=== PATIENT | female | born 1995 | race American Indian/Alaskan Native ===

== ENCOUNTER 2018-01-12 10:39 | Inpatient (IN) | payer BC ==
[2018-01-12] MEDS ORDERED: MINERAL OIL PO PRN (10:50)
[2018-01-12] MEDS ORDERED: BRETHINE SUB-Q PRN (10:50)
[2018-01-12] MEDS ORDERED: SUBLIMAZE IV PRN (10:50)
[2018-01-12] MEDS ORDERED: ZOFRAN IV PRN (10:50)
[2018-01-12] MEDS ORDERED: XYLOCAINE 2% INFILTRATI ONE (10:50)
--- NOTE | 2018-01-12 10:56 | History and Physical Report ---
History of Present Illness Date of examination: 01/12/18 (pt presents for IOL @ 41w4d) Date of admission: 01/12/18 10:39 History of present illness: EDC Confirmation: 01/01/2018 Gestational Age: 8 3/7 weeks Past History : 1 Term Births: 0 Premature Births: 0 Living Children: 0 Para: 0 Mult. Births: 0 Prev : 0 Prev. attempt? 0 Aborta: 0 Elect. Ab: 0 Spont. 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 of genital herpes: no Partner hx. of genital herpes: no Rash, Viral, or Febrile illness since last LMP? no Varicella/Chicken Pox Status: Previous Disease Genetic History Congenital Heart Defect: Mom: no Dad: no Roberth Disease: Mom: no Dad: no Thalassemia Mom: no Dad: no Neural Tube Defect Mom: no Dad: no Down's Syndrome Mom: no Dad: yes Comments: second cousin Hardik-Sachs Mom: no Dad: no Sickle Cell Disease/Trait Mom: no Dad: no Hemophilia Mom: no Dad: no Muscular Dystrophy Mom: no Dad: no Cystic Fibrosis Mom: no Dad: no Lucrecia Chorea Mom: no Dad: no Mental Retardation Mom: no Dad: no Fragile X Mom: no Dad: no Other Genetic/Chromosomal Disorder Mom: no Dad: no Child w/other defect Mom: no Dad: no Enviromental Exposures Xray Exposure: no Medication, drug, or alcohol use since LMP: no Chemical/Other Exposure: no Exposure to Cat Liter: no Hx of Parvovirus (Fifth Disease): no Occupational Exposure to Children: none Active Medications (reviewed today): None Current Allergies (reviewed today): No known allergies Past History - Obstetrical History Expected Date of Delivery: 01/01/18 Actual Gestation: 41 Week(s) 4 Day(s) : 1 Para: 0 Hx # Term Pregnancies: 0 Number of Pregnancies: 0 Spontaneous Abortions: 0 Induced : 0 Number of Living Children: 0 Medications and Allergies Allergies Allergy/AdvReac Type Severity Reaction Status Date / Time No Known Allergies Allergy Unverified 01/12/18 11:22 - Physical Exam Breasts: Positive: deferred Cardiovascular: Regular rate, Normal S1, Normal S2 Lungs: Positive: Clear to auscultation Abdomen: Positive: normal appearance, soft, normal bowel sounds. Negative: distention, tenderness Genitourinary (Female): Positive: normal external genitalia Vulva: both: normal Vagina: Positive: normal moisture. Negative: discharge Cervix: Negative: lesion, discharge Uterus: Positive: normal size, normal contour Adnexa: both: normal Anus/Rectum: Positive: normal perianal skin, heme negative. Negative: rectal mass, hemorrhoids Extremities: Positive: normal Deep Tendon Reflex Grade: Normal +2 - Obstetrical FHR: category 1 Uterine Contraction Monitor Mode: External Cervical Dilatation: 0.5 Cervical Effacement Percentage: 40 station: -3 Uterine Contraction Pattern: Irregular Uterine Tone Measurement Phase: Resting Uterine Contraction Intensity: Mild Results Result Diagrams: 01/12/18 11:16 01/12/18 11:15 All other labs normal. Strep Gp B JOSE DAVID [A] Positive HBsAg Screen Negative Negative *1 RPR Non Reactive Non Reactive *2 Rubella Antibodies, IgG [L] <0.90 index Immune >0.99 *3 Non-immune <0.90 Equivocal 0.90 - 0.99 Immune >0.99 ABO Grouping O *4 Rh Factor Positive *5 Please note: Prior records for this patient's ABO / Rh type are not available for additional verification. Antibody Screen Negative Negative *6 WBC 10.7 x10E3/uL 3.4-10.8 *7 RBC 4.81 x10E6/uL 3.77-5.28 *8 Hemoglobin 13.8 g/dL 11.1-15.9 *9 Hematocrit 41.1 % 34.0-46.6 *10 MCV 85 fL 79-97 *11 MCH 28.7 pg 26.6-33.0 *12 MCHC 33.6 g/dL 31.5-35.7 *13 RDW 14.3 % 12.3-15.4 *14 Platelets 186 x10E3/uL 150-379 *15 Neutrophils 74 % Not Estab. *16 Lymphs 19 % Not Estab. *17 Monocytes 5 % Not Estab. *18 Eos 2 % Not Estab. *19 Basos 0 % Not Estab. *20 ! Immature Cells <No Reported Value> *21 Neutrophils (Absolute) [H] 8.0 x10E3/uL 1.4-7.0 *22 Lymphs (Absolute) 2.0 x10E3/uL 0.7-3.1 *23 Monocytes(Absolute) 0.5 x10E3/uL 0.1-0.9 *24 Eos (Absolute) 0.2 x10E3/uL 0.0-0.4 *25 Baso (Absolute) 0.0 x10E3/uL 0.0-0.2 *26 ! Immature Granulocytes 0 % Not Estab. *27 ! Immature Grans (Abs) 0.0 x10E3/uL 0.0-0.1 *28 ! NRBC <No Reported Value> *29 Hematology Comments: <No Reported Value> *30 Tests: (2) Panel 549215 ([id number]) HIV Screen 4th Generation wRfx Non Reactive Non Reactive *31 Tests: (3) HCV Ab w/Rflx to Verification (107413) ! HCV Ab <0.1 s/co ratio 0.0-0.9 *32 Tests: (4) Comment: (964608) ! Comment: [facility] *33 Non reactive HCV antibody screen is consistent with no HCV infection, unless recent infection is suspected or other evidence exists to indicate HCV infection. Tests: (5) Urine Culture, Routine (346135) Urine Culture, Routine Final report *34 Tests: (6) Result (705606) ! Result 1 No growth Assessment and Plan 22yo @ 41 weeks for IOL GBS+ Orders in EMR
[2018-01-12] MEDS ORDERED: PITOCin/NS 20 UNIT/1000ML DRIP 20 UNITS/1,000 ML BAG IV SCH (11:00)
[2018-01-12] MEDS ORDERED: LACTATED RINGERS 1,000 ML IV SCH (11:00)
[2018-01-12 11:54] LABS: Hematocrit 38.2 % (30.3-42.9); Hemoglobin 13.3 gm/dl (10.1-14.3); Mean Corpuscular HGB Conc 35 % (30-34); Mean Corpuscular Hemoglobin 30 pg (28-32); Mean Corpuscular Volume 85 fl (79-97); Platelet Count 113 K/mm3 (140-440); Red Blood Count 4.48 M/mm3 (3.65-5.03); Red Cell Distribution Width 15.4 % (13.2-15.2)
[2018-01-12] MEDS ORDERED: CERVIDIL VG ONE (12:00)
[2018-01-12] MEDS ORDERED: POLYCILLIN/NS 2 GM/100 ML 2 GM/100 ML BAG IV ONE (12:00)
[2018-01-12 13:23] LABS: Alanine Aminotransferase 7 units/L (7-56); Uric Acid 4.3 mg/dL (3.5-7.6)
[2018-01-12] MEDS ORDERED: AMBIEN PO PRN (20:58)
--- NOTE | 2018-01-12 21:51 | Event Note ---
Date: 01/12/18 (POC reviewed; All questions addressed) Pt very anxious about ABX, about what comes next after Cervidil, and the length of time the IOL may take. The 2Gm dose of Ampicillin has been given when she starts active labor will give 1GM dose Q 4hrs. Cervidil will be removed @ 0400 She will be OOB for AM care and diet Then pitocin will be started per protocol. How long will IOL take exp it could be 12-24 hours or it maybe 2-3 days. All questions were addressed and answered. Pt given Ambien for sleep.
[2018-01-12] MEDS ORDERED: PITOCin/NS 30 UNIT/500ML 30 UNITS/500 ML BAG IV SCH (23:00)
[2018-01-13] MEDS: AMPICILLIN/NS 1 GM/50 ML 1 GM/50 ML BAG IV SCH ×2 (05:59→14:10)
--- NOTE | 2018-01-13 07:46 | Progress Note ---
Assessment and Plan SROM @ 0633 with light mec, SVE 3-4/95/-1 to 0. After discussing plan of care, IUPC and ISE placed without difficulty. IVF open for bolus for epidural, will start pitocin after epidural placement. GBS +, ampicillin q4h until delivery. Pelvis appears adequate for efw 8#8 at this late stage of , anticipate . Dr. Wick aware of patient's status. - Patient Problems (1) SROM (spontaneous rupture of membranes) Current Visit: Yes Status: Acute (2) 41 weeks gestation of Current Visit: Yes Status: Acute (3) Group B Streptococcus carrier state affecting Current Visit: Yes Status: Acute Subjective - Subjective Date of service: 01/13/18 Principal diagnosis: IUP @ 41+5 weeks, AROM Patient reports: loss of fluid, movement normal, contractions Objective - Vital Signs Vital Signs: Vital Signs - 12hr 01/12/18 01/12/18 01/12/18 19:46 19:51 19:56 Temperature Pulse Rate 103 H 102 H 103 H Respiratory Rate Blood Pressure O2 Sat by Pulse 96 96 94 Oximetry 01/12/18 01/12/18 01/12/18 19:57 20:01 20:06 Temperature 98.3 F Pulse Rate 97 H 102 H 98 H Respiratory 20 Rate Blood Pressure 124/83 O2 Sat by Pulse 96 96 Oximetry 01/12/18 01/12/18 01/12/18 20:11 20:16 20:21 Temperature Pulse Rate 101 H 101 H 96 H Respiratory Rate Blood Pressure O2 Sat by Pulse 97 96 96 Oximetry 01/12/18 01/12/18 01/12/18 20:23 20:51 20:56 Temperature Pulse Rate 99 H 98 H 99 H Respiratory Rate Blood Pressure O2 Sat by Pulse 94 94 95 Oximetry 01/12/18 01/12/18 01/12/18 21:01 21:05 21:06 Temperature Pulse Rate 105 H 97 H 100 H Respiratory Rate Blood Pressure O2 Sat by Pulse 95 94 95 Oximetry 01/12/18 01/12/18 01/12/18 21:10 21:11 21:15 Temperature Pulse Rate 103 H 96 H 103 H Respiratory Rate Blood Pressure O2 Sat by Pulse 94 95 94 Oximetry 01/12/18 01/13/18 01/13/18 22:01 04:04 04:57 Temperature 98.5 F Pulse Rate 102 H 100 H 115 H Respiratory 20 Rate Blood Pressure 122/72 117/78 O2 Sat by Pulse 94 Oximetry 01/13/18 01/13/18 01/13/18 05:02 05:07 05:12 Temperature Pulse Rate 118 H 110 H 110 H Respiratory Rate Blood Pressure O2 Sat by Pulse 95 95 97 Oximetry 01/13/18 01/13/18 01/13/18 05:17 05:19 05:22 Temperature Pulse Rate 105 H 98 H 103 H Respiratory Rate Blood Pressure O2 Sat by Pulse 96 94 95 Oximetry 01/13/18 01/13/18 01/13/18 05:27 05:31 05:32 Temperature Pulse Rate 103 H 103 H 105 H Respiratory Rate Blood Pressure O2 Sat by Pulse 96 94 94 Oximetry 01/13/18 01/13/18 01/13/18 05:37 05:42 05:47 Temperature Pulse Rate 107 H 101 H 108 H Respiratory Rate Blood Pressure O2 Sat by Pulse 95 96 95 Oximetry 01/13/18 01/13/18 01/13/18 05:52 05:57 06:02 Temperature Pulse Rate 106 H 100 H 101 H Respiratory Rate Blood Pressure O2 Sat by Pulse 96 96 95 Oximetry 01/13/18 01/13/18 01/13/18 06:07 06:12 06:17 Temperature 98 F Pulse Rate 125 H 119 H 115 H Respiratory 20 Rate Blood Pressure 121/75 O2 Sat by Pulse 96 95 95 Oximetry 01/13/18 01/13/18 01/13/18 06:18 06:22 06:26 Temperature Pulse Rate 109 H 115 H 111 H Respiratory Rate Blood Pressure O2 Sat by Pulse 94 95 94 Oximetry 01/13/18 01/13/18 01/13/18 06:27 06:32 06:33 Temperature 97.6 F Pulse Rate 104 H 113 H Respiratory 20 Rate Blood Pressure O2 Sat by Pulse 95 97 Oximetry 01/13/18 01/13/18 01/13/18 06:37 06:42 06:47 Temperature Pulse Rate 103 H 102 H 93 H Respiratory Rate Blood Pressure O2 Sat by Pulse 97 97 96 Oximetry 01/13/18 01/13/18 01/13/18 06:52 06:57 07:02 Temperature Pulse Rate 95 H 98 H 109 H Respiratory Rate Blood Pressure O2 Sat by Pulse 96 96 99 Oximetry 01/13/18 01/13/18 01/13/18 07:05 07:07 07:12 Temperature Pulse Rate 95 H 92 H 104 H Respiratory Rate Blood Pressure O2 Sat by Pulse 94 97 97 Oximetry 01/13/18 01/13/18 01/13/18 07:17 07:28 07:33 Temperature Pulse Rate 104 H 110 H 102 H Respiratory Rate Blood Pressure O2 Sat by Pulse 98 96 97 Oximetry 01/13/18 07:38 Temperature Pulse Rate 101 H Respiratory Rate Blood Pressure O2 Sat by Pulse 95 Oximetry - Exam Breasts: normal Cardiovascular: Regular rate Lungs: Clear to auscultation, Normal air movement Abdomen: Present: normal appearance, soft Vulva: both: normal Uterus: Present: normal FHR: auscultation normal, category 1 Uterine Contraction Monitor Mode: Internal Cervical Dilatation: 3.5 (SROM - light mec) Cervical Effacement Percentage: 95 station: -1 Uterine Contraction Frequency (min): 2-3 Uterine Contraction Duration: 60 Uterine Contraction Pattern: Regular Uterine Tone Measurement Phase: Contraction Uterine Contraction Intensity: Moderate Extremities: normal Deep Tendon Reflex Grade: Normal +2 - Labs Labs: Abnormal Labs 01/12/18 01/12/18 11:15 11:16 WBC 13.0 H MCHC 35 H RDW 15.4 H Plt Count 113 L Creatinine 0.4 L Lactate Dehydrogenase 201 H Laboratory Results - last 24 hr 01/12/18 01/12/18 01/12/18 11:15 11:16 11:19 WBC 13.0 H RBC 4.48 Hgb 13.3 Hct 38.2 MCV 85 MCH 30 MCHC 35 H RDW 15.4 H Plt Count 113 L Creatinine 0.4 L Estimated GFR > 60 Uric Acid 4.3 AST 15 ALT 7 Lactate Dehydrogenase 201 H Blood Type O POSITIVE Antibody Screen Negative
[2018-01-13] MEDS ORDERED: NARCAN 2 MG/2 ML IV PRN (09:19)
--- NOTE | 2018-01-13 09:19 | Anesthesia Consultation ---
Anesthesia Consult and Med Hx Date of service: 01/13/18 - Airway Anesthetic Teeth Evaluation: Good ROM Head & Neck: Adequate Mental/Hyoid Distance: Adequate Mallampati Class: Class II Intubation Access Assessment: Probably Good - Pre-Operative Health Status ASA Pre-Surgery Classification: ASA2 Proposed Anesthetic Plan: Epidural, Spinal - Pulmonary Hx Asthma: No COPD: No Hx Pneumonia: No - Cardiovascular System Hx Hypertension: No - Central Nervous System Hx Seizures: No Hx Psychiatric Problems: No - Endocrine Hx Renal Disease: No Hx End Stage Renal Disease: No Hx Hypothyroidism: No Hx Hyperthyroidism: No - Hematic Hx Anemia: No Hx Sickle Cell Disease: No - Other Systems Hx Alcohol Use: No (social)
[2018-01-13] MEDS ORDERED: fentaNYL-BUPIV 2 MCG/ML-0.125% 200 MCG/100 ML BAG EPIDURAL SCH (11:00)
[2018-01-13] MEDS ORDERED: AFLURIA QUAD 2018-2019 SYRINGE IM ONE (12:00)
--- NOTE | 2018-01-13 12:15 | Progress Note ---
Assessment and Plan patient comfortable with epidural, sve with good change, no 8/100/0. FHT CAT 2 (isolated variable noted @ 1130, otherwise +accels, ave variability.) Patient turned to left side with right leg in stirrup. RN to continue to titrate pitocin as needed. - Patient Problems (1) SROM (spontaneous rupture of membranes) Current Visit: Yes Status: Acute (2) 41 weeks gestation of Current Visit: Yes Status: Acute (3) Group B Streptococcus carrier state affecting Current Visit: Yes Status: Acute Subjective - Subjective Date of service: 01/13/18 Principal diagnosis: IUP @ 41+5 weeks, AROM Patient reports: no new complaints (comfortable with epidural) Objective - Vital Signs Vital Signs: Vital Signs - 12hr 01/13/18 01/13/18 01/13/18 04:04 04:57 05:02 Temperature Pulse Rate 100 H 115 H 118 H Respiratory Rate Blood Pressure 117/78 O2 Sat by Pulse 94 95 Oximetry 01/13/18 01/13/18 01/13/18 05:07 05:12 05:17 Temperature Pulse Rate 110 H 110 H 105 H Respiratory Rate Blood Pressure O2 Sat by Pulse 95 97 96 Oximetry 01/13/18 01/13/18 01/13/18 05:19 05:22 05:27 Temperature Pulse Rate 98 H 103 H 103 H Respiratory Rate Blood Pressure O2 Sat by Pulse 94 95 96 Oximetry 01/13/18 01/13/18 01/13/18 05:31 05:32 05:37 Temperature Pulse Rate 103 H 105 H 107 H Respiratory Rate Blood Pressure O2 Sat by Pulse 94 94 95 Oximetry 01/13/18 01/13/18 01/13/18 05:42 05:47 05:52 Temperature Pulse Rate 101 H 108 H 106 H Respiratory Rate Blood Pressure O2 Sat by Pulse 96 95 96 Oximetry 01/13/18 01/13/18 01/13/18 05:57 06:02 06:07 Temperature Pulse Rate 100 H 101 H 125 H Respiratory Rate Blood Pressure O2 Sat by Pulse 96 95 96 Oximetry 01/13/18 01/13/18 01/13/18 06:12 06:17 06:18 Temperature 98 F Pulse Rate 119 H 115 H 109 H Respiratory 20 Rate Blood Pressure 121/75 O2 Sat by Pulse 95 95 94 Oximetry 01/13/18 01/13/1801/13/18 06:22 06:26 06:27 Temperature Pulse Rate 115 H 111 H 104 H Respiratory Rate Blood Pressure O2 Sat by Pulse 95 94 95 Oximetry 01/13/18 01/13/18 01/13/18 06:32 06:33 06:37 Temperature 97.6 F Pulse Rate 113 H 103 H Respiratory 20 Rate Blood Pressure O2 Sat by Pulse 97 97 Oximetry 01/13/18 01/13/18 01/13/18 06:42 06:47 06:52 Temperature Pulse Rate 102 H 93 H 95 H Respiratory Rate Blood Pressure O2 Sat by Pulse 97 96 96 Oximetry 01/13/18 01/13/18 01/13/18 06:57 07:02 07:05 Temperature Pulse Rate 98 H 109 H 95 H Respiratory Rate Blood Pressure O2 Sat by Pulse 96 99 94 Oximetry 01/13/18 01/13/18 01/13/18 07:07 07:12 07:17 Temperature Pulse Rate 92 H 104 H 104 H Respiratory Rate Blood Pressure O2 Sat by Pulse 97 97 98 Oximetry 01/13/18 01/13/18 01/13/18 07:28 07:33 07:38 Temperature Pulse Rate 110 H 102 H 101 H Respiratory Rate Blood Pressure O2 Sat by Pulse 96 97 95 Oximetry 01/13/18 01/13/18 01/13/18 07:43 07:48 07:53 Temperature Pulse Rate 102 H 107 H 101 H Respiratory Rate Blood Pressure O2 Sat by Pulse 95 96 96 Oximetry 01/13/18 01/13/18 01/13/18 07:56 07:58 08:03 Temperature Pulse Rate 98 H 97 H 97 H Respiratory Rate Blood Pressure 143/93 O2 Sat by Pulse 95 96 Oximetry 01/13/18 01/13/18 01/13/18 08:08 08:11 08:13 Temperature Pulse Rate 99 H 104 H 107 H Respiratory Rate Blood Pressure 127/71 O2 Sat by Pulse 98 96 Oximetry 01/13/18 01/13/18 01/13/18 08:18 08:23 08:26 Temperature Pulse Rate 102 H 103 H 106 H Respiratory Rate Blood Pressure 144/105 O2 Sat by Pulse 98 96 Oximetry 01/13/18 01/13/18 01/13/18 08:28 08:33 08:38 Temperature Pulse Rate 103 H 101 H 103 H Respiratory Rate Blood Pressure O2 Sat by Pulse 96 95 97 Oximetry 01/13/18 01/13/18 01/13/18 08:40 08:41 08:43 Temperature Pulse Rate 104 H 104 H 98 H Respiratory Rate Blood Pressure 149/104 O2 Sat by Pulse 94 97 Oximetry 01/13/18 01/13/18 01/13/18 08:48 08:53 08:56 Temperature Pulse Rate 105 H 104 H 107 H Respiratory Rate Blood Pressure 136/82 O2 Sat by Pulse 97 97 Oximetry 01/13/18 01/13/18 01/13/18 08:58 09:03 09:08 Temperature Pulse Rate 109 H 105 H 106 H Respiratory Rate Blood Pressure O2 Sat by Pulse 95 97 98 Oximetry 01/13/18 01/13/18 01/13/18 09:13 09:18 09:23 Temperature Pulse Rate 106 H 103 H Respiratory Rate Blood Pressure 135/84 O2 Sat by Pulse 97 97 87 Oximetry 01/13/18 01/13/18 01/13/18 09:24 09:26 09:28 Temperature Pulse Rate 110 H 104 H 109 H Respiratory Rate Blood Pressure 129/78 O2 Sat by Pulse 86 99 Oximetry 01/13/18 01/13/18 01/13/18 09:33 09:38 09:43 Temperature Pulse Rate 99 H 104 H 104 H Respiratory Rate Blood Pressure 140/90 O2 Sat by Pulse 98 96 98 Oximetry 01/13/18 01/13/18 01/13/18 09:44 09:45 09:49 Temperature Pulse Rate 105 H 104 H 99 H Respiratory Rate Blood Pressure 131/77 129/76 O2 Sat by Pulse 87 99 Oximetry 01/13/18 01/13/18 01/13/18 09:54 09:58 09:59 Temperature Pulse Rate 106 H 100 H 99 H Respiratory Rate Blood Pressure 124/69 137/75 O2 Sat by Pulse 99 99 Oximetry 01/13/18 01/13/18 01/13/18 10:04 10:08 10:09 Temperature Pulse Rate 93 H 88 93 H Respiratory Rate Blood Pressure 128/80 129/79 O2 Sat by Pulse 98 99 Oximetry 01/13/18 01/13/18 01/13/18 10:13 10:14 10:18 Temperature Pulse Rate 91 H 100 H 89 Respiratory Rate Blood Pressure 133/73 131/74 O2 Sat by Pulse 100 Oximetry 09/01/13/18 01/13/18 10:19 10:23 10:24 Temperature Pulse Rate 91 H 92 H 95 H Respiratory Rate Blood Pressure 138/87 O2 Sat by Pulse 99 99 Oximetry 01/13/18 01/13/18 01/13/18 10:28 10:29 10:33 Temperature Pulse Rate 98 H 90 93 H Respiratory Rate Blood Pressure 137/84 132/81 O2 Sat by Pulse 99 Oximetry 01/13/18 01/13/18 01/13/18 10:34 10:38 10:39 Temperature Pulse Rate 91 H 93 H 89 Respiratory Rate Blood Pressure 131/73 O2 Sat by Pulse 100 100 Oximetry 01/13/18 01/13/18 01/13/18 10:43 10:44 10:48 Temperature Pulse Rate 92 H 103 H 97 H Respiratory Rate Blood Pressure 129/75 128/76 O2 Sat by Pulse 99 Oximetry 01/13/18 01/13/18 01/13/18 10:49 10:53 10:54 Temperature Pulse Rate 94 H 94 H 99 H Respiratory Rate Blood Pressure 124/73 O2 Sat by Pulse 100 99 Oximetry 01/13/18 01/13/18 01/13/18 10:58 10:59 11:03 Temperature Pulse Rate 93 H 92 H 103 H Respiratory Rate Blood Pressure 124/71 127/80 O2 Sat by Pulse 99 Oximetry 01/13/18 01/13/18 01/13/18 11:04 11:09 11:14 Temperature Pulse Rate 105 H 104 H 100 H Respiratory Rate Blood Pressure 135/82 O2 Sat by Pulse 98 98 98 Oximetry 01/13/18 01/13/18 01/13/18 11:19 11:24 11:27 Temperature Pulse Rate 97 H 101 H 106 H Respiratory Rate Blood Pressure 128/80 O2 Sat by Pulse 98 98 Oximetry 01/13/18 01/13/18 01/13/18 11:29 11:34 11:42 Temperature Pulse Rate 100 H 125 H 120 H Respiratory Rate Blood Pressure 132/80 O2 Sat by Pulse 98 99 Oximetry 01/13/18 11:57 Temperature Pulse Rate 116 H Respiratory Rate Blood Pressure 136/81 O2 Sat by Pulse Oximetry - Exam Breasts: normal Cardiovascular: Regular rate Lungs: Clear to auscultation, Normal air movement Abdomen: Present: normal appearance, soft Vulva: both: normal Uterus: Present: normal FHR: auscultation normal, category 1 Uterine Contraction Monitor Mode: Internal Cervical Dilatation: 8 Cervical Effacement Percentage: 100 station: 0 Uterine Contraction Frequency (min): 2-3 Uterine Contraction Duration: 60 Uterine Contraction Pattern: Regular Uterine Tone Measurement Phase: Contraction Uterine Contraction Intensity: Moderate Extremities: normal Deep Tendon Reflex Grade: Normal +2 - Labs Labs: Abnormal Labs 01/12/18 01/12/18 11:15 11:16 WBC 13.0 H MCHC 35 H RDW 15.4 H Plt Count 113 L Creatinine 0.4 L Lactate Dehydrogenase 201 H Laboratory Results - last 24 hr 01/12/18 01/12/18 01/12/18 11:15 11:16 11:19 Creatinine 0.4 L Estimated GFR > 60 Uric Acid 4.3 AST 15 ALT 7 Lactate Dehydrogenase 201 H RPR Nonreactive Blood Type O POSITIVE Antibody Screen Negative
--- NOTE | 2018-01-13 17:15 | Procedure Note ---
OB Delivery Note - Delivery Date of Delivery: 01/13/18 ( male) [employer]: DAMARIS TYLER Estimated blood loss: other (350) - Vaginal Delivery presentation: vertex Delivery position: OA (restitued to SUSAN) Intrapartum events: PROM->1hr before delivery, meconium, mult.variable deceleratio (head compression during later part of pushing), other(please specify) ( tachycardia- no maternal temp) Delivery induction: cervidil Delivery augmentation: pitocin Delivery monitor: internal FHT, internal uterine Route of delivery: Delivery placenta: spontaneous Delivery cord: 3 umbilical vessels Episiotomy: none Delivery laceration: 2nd degree, other (bilateral labial) Delivery repair: vicryl Anesthesia: epidural Delivery comments: Male del OA and rotated SUSAN, no shoulder dystocia. Cord clamped and cut - infant taken to warmer to awaiting NICU CLERICAL ADJUSTER and RN d/t meconium fluid. Cord blood collected. Placenta del intact and complete. 2nd degree vag/jose angel laceration and bilateral labial lacerations repaired in the usual fashion. EBL 350, apgars 4/7/8 - taken to NICU to transition. baby's weight 7#14. pt remains LDR stable. - Infant A at 1 minute: 4 at 5 minutes: 7 Gender: Male (7#14, 10 minutes 8)
[2018-01-13] MEDS ORDERED: DERMOPLAST TP PRN (20:01)
[2018-01-13] MEDS ORDERED: TUCKS PAD TP PRN (20:01)
[2018-01-13] MEDS ORDERED: SODIUM CHLORIDE FLUSH SYRINGE 10 ML IV NR (20:01)
[2018-01-13] MEDS ORDERED: LANSINOH TP PRN (20:01)
[2018-01-13] MEDS ORDERED: DULCOLAX PR PRN (20:01)
[2018-01-13] MEDS ORDERED: PITOCin/NS 20 UNIT/1000ML DRIP 20 UNITS/1,000 ML BAG IV SCH (20:01)
[2018-01-13] MEDS ORDERED: TYLENOL PO PRN (20:01)
[2018-01-13] MEDS ORDERED: NORCO 5/325 PO PRN (20:01)
[2018-01-13] MEDS ORDERED: BENADRYL PO PRN (20:01)
[2018-01-13] MEDS ORDERED: PHENERGAN PO PRN (20:01)
[2018-01-13] MEDS ORDERED: MILK OF MAGNESIA PO PRN (20:01)
[2018-01-13] MEDS: MOTRIN PO SCH (21:36)
[2018-01-13] MEDS: COLACE PO SCH (23:09)
[2018-01-13] MEDS: FEOSOL PO SCH (23:09)
[2018-01-13] MEDS ORDERED: AMBIEN PO ONE (23:45)
[2018-01-14] MEDS: MOTRIN PO SCH ×3 (03:04→17:37)
[2018-01-14 05:41] LABS: Hemoglobin 9.8 gm/dl (10.1-14.3)
--- NOTE | 2018-01-14 06:32 | Progress Note ---
Assessment and Plan - Patient Problems (1) (normal spontaneous vaginal delivery) Onset Date: ~01/13/18 Current Visit: Yes Status: Acute Plan to address problem: pt resting asking questions about pumping and advancing activity All questions addressed VSS FF below umb Lochia mod Perineum slight swelling intact. Doing well s/p vag delivery P: continue pathway Advance as tolerated Breast pump given Subjective - Subjective Date of service: 01/14/18 (resting) Principal diagnosis: 01-13-18 Interval history: EDC Confirmation: 01/01/2018 Gestational Age: 8 3/7 weeks Past History : 1 Term Births: 0 Premature Births: 0 Living Children: 0 Para: 0 Mult. Births: 0 Prev : 0 Prev. attempt? 0 Aborta: 0 Elect. Ab: 0 Spont. Ab: 0 Ectopics: 0 Past Medical History: Negative Past Medical History Past Surgical History: hernia repair wisdom teeth extracted Past Medical History Surgery (Non-gynecologist): hernia repair wisdom teeth extracted Abnormal PAP: negative MAYNOR Exposure: negative Infertility: negative Uterine Anomaly: negative Uterine Surgery (not C/S): negative Other Gynecologic Problems: negative Family Hx: father- htn PGM - breast ca mother - uterine ca Infection History Hx of STD: none HIV Risk Eval: low risk Hepatitis B Risk Eval: low risk Personal hx. of genital herpes: no Partner hx. of genital herpes: no Rash, Viral, or Febrile illness since last LMP? no Varicella/Chicken Pox Status: Previous Disease Genetic History Congenital Heart Defect: Mom: no Dad: no Roberth Disease: Mom: no Dad: no Thalassemia Mom: no Dad: no Neural Tube Defect Mom: no Dad: no Down's Syndrome Mom: no Dad: yes Comments: second cousin Hardik-Sachs Mom: no Dad: no Sickle Cell Disease/Trait Mom: no Dad: no Hemophilia Mom: no Dad: no Muscular Dystrophy Mom: no Dad: no Cystic Fibrosis Mom: no Dad: no [place] Chorea Mom: no Dad: no Mental Retardation Mom: no Dad: no Fragile X Mom: no Dad: no Other Genetic/Chromosomal Disorder Mom: no Dad: no Child w/other defect Mom: no Dad: no Enviromental Exposures Xray Exposure: no Medication, drug, or alcohol use since LMP: no Chemical/Other Exposure: no Exposure to Cat Liter: no Hx of Parvovirus (Fifth Disease): no Occupational Exposure to Children: none Active Medications (reviewed today): None Current Allergies (reviewed today): No known allergies Patient reports: appetite normal, voiding normally, pain well controlled, ambulating normally : in NICU Objective - Vital Signs Latest vital signs: Vital Signs Temp Pulse Resp BP BP Pulse Ox 01/14/18 06:15 97.9 F 100 H 20 116/73 100 01/14/18 00:35 98.1 F 95 H 17 110/65 99 01/13/18 21:30 99.6 F 103 H 20 108/68 97 01/13/18 19:16 118 H 120/74 01/13/18 18:56 114 H 118/67 01/13/18 18:36 92 H 111/63 01/13/18 18:22 126 H 99 01/13/18 18:17 124 H 100 01/13/18 18:12 115 H 98 01/13/18 18:11 115 H 126/70 01/13/18 18:07 113 H 99 01/13/18 18:02 114 H 99 01/13/18 17:57 112 H 100 01/13/18 17:56 109 H 131/74 01/13/18 17:52 117 H 100 01/13/18 17:47 113 H 100 01/13/18 17:42 113 H 99 01/13/18 17:41 120 H 139/83 01/13/18 17:37 119 H 100 01/13/18 17:32 115 H 99 01/13/18 17:27 120 H 99 01/13/18 17:26 122 H 135/71 01/13/18 17:11 120 H 134/82 01/13/18 17:00 120 H 133/73 01/13/18 16:56 118 H 132/70 01/13/18 16:41 127 H 133/70 01/13/18 16:26 127 H 134/72 01/13/18 16:11 142 H 130/84 01/13/18 15:56 122 H 109/77 01/13/18 15:41 108 H 133/80 01/13/18 15:11 112 H 132/73 01/13/18 14:56 122 H 135/79 01/13/18 14:43 122/81 01/13/18 14:26 100 H 141/83 01/13/18 13:56 102 H 125/84 01/13/18 13:41 114 H 118/76 01/13/18 13:26 96 H 128/78 01/13/18 13:12 83 105/63 01/13/18 12:56 82 108/66 01/13/18 12:42 86 112/66 01/13/18 12:26 100 H 124/74 01/13/18 12:17 98.7 F 01/13/18 12:11 107 H 126/83 01/13/18 11:57 116 H 136/81 01/13/18 11:42 120 H 132/80 01/13/18 11:34 125 H 99 01/13/18 11:29 100 H 98 01/13/18 11:27 106 H 128/80 01/13/18 11:24 101 H 98 01/13/18 11:19 97 H 98 01/13/18 11:14 100 H 98 01/13/18 11:09 104 H 135/82 98 01/13/18 11:04 105 H 98 01/13/18 11:03 103 H 127/80 01/13/18 10:59 92 H 99 01/13/18 10:58 93 H 124/71 01/13/18 10:54 99 H 99 01/13/18 10:53 94 H 124/73 01/13/18 10:49 94 H 100 01/13/18 10:48 97 H 128/76 01/13/18 10:44 103 H 99 01/13/18 10:43 92 H 129/75 01/13/18 10:39 89 100 01/13/18 10:38 93 H 131/73 01/13/18 10:34 91 H 100 01/13/18 10:33 93 H 132/81 01/13/18 10:29 90 99 01/13/18 10:28 98 H 137/84 01/13/18 10:24 95 H 99 01/13/18 10:23 92 H 138/87 01/13/18 10:19 91 H 99 01/13/18 10:18 89 131/74 01/13/18 10:14 100 H 100 01/13/18 10:13 91 H 133/73 01/13/18 10:09 93 H 99 01/13/18 10:08 88 129/79 01/13/18 10:04 93 H 128/80 98 01/13/18 09:59 99 H 99 01/13/18 09:58 100 H 137/75 01/13/18 09:54 106 H 124/69 99 01/13/18 09:49 99 H 129/76 99 01/13/18 09:45 104 H 87 01/13/18 09:44 105 H 131/77 01/13/18 09:43 104 H 98 01/13/18 09:38 104 H 140/90 96 01/13/18 09:33 99 H 98 01/13/18 09:28 109 H 99 01/13/18 09:26 104 H 129/78 01/13/18 09:24 110 H 86 01/13/18 09:23 87 01/13/18 09:18 103 H 97 01/13/18 09:13 106 H 135/84 97 01/13/18 09:08 106 H 98 01/13/18 09:03 105 H 97 01/13/18 08:58 109 H 95 01/13/18 08:56 107 H 136/82 01/13/18 08:53 104 H 97 01/13/18 08:48 105 H 97 01/13/18 08:43 98 H 97 01/13/18 08:41 104 H 149/104 01/13/18 08:40 104 H 94 01/13/18 08:38 103 H 97 01/13/18 08:33 101 H 95 01/13/18 08:28 103 H 96 01/13/18 08:26 106 H 144/105 01/13/18 08:23 103 H 96 01/13/18 08:18 102 H 98 01/13/18 08:13 107 H 96 01/13/18 08:11 104 H 127/71 01/13/18 08:08 99 H 98 01/13/18 08:03 97 H 96 01/13/18 08:00 98.4 F 01/13/18 07:58 97 H 95 01/13/18 07:56 98 H 143/93 01/13/18 07:53 101 H 96 01/13/18 07:48 107 H 96 01/13/18 07:43 102 H 95 01/13/18 07:38 101 H 95 01/13/18 07:33 102 H 97 01/13/18 07:28 110 H 96 01/13/18 07:17 104 H 98 01/13/18 07:12 104 H 97 01/13/18 07:07 92 H 97 01/13/18 07:05 95 H 94 01/13/18 07:02 109 H 99 01/13/18 06:57 98 H 96 01/13/18 06:52 95 H 96 01/13/18 06:47 93 H 96 01/13/18 06:42 102 H 97 01/13/18 06:37 103 H 97 01/13/18 06:33 97.6 F 20 01/13/18 06:32 113 H 97 Intake and Output 01/13/18 01/13/18 01/14/18 14:59 22:59 06:59 Output Total 500 1050 Balance -500 -1050 Output: Urine 500 1050 Void 500 1050 Other: Total, Output Amount 500 600 Estimated Blood Loss 350 - Exam Breasts: Present: normal (will pump) Lungs: Present: Normal air movement Abdomen: Present: normal appearance, soft Vulva: both: laceration/episiotomy (slight redness and swelling) Uterus: Present: normal, firm, fundal height below umbilicus Extremities: Present: normal Deep Tendon Reflex Grade: Normal +2 Incision: Present: normal, erythematous, dry, intact - Labs Labs: Abnormal lab results 01/14/18 Range/Units 04:59 Hgb 9.8 L D (10.1-14.3) gm/dl Hct 28.0 L D (30.3-42.9) %
[2018-01-14] MEDS ORDERED: PRENATAL VITAMIN PO SCH (10:00)
[2018-01-14] MEDS ORDERED: BOOSTRIX IM ONE (17:17)
[2018-01-14] MEDS: COLACE PO SCH (22:09)
[2018-01-14] MEDS: FEOSOL PO SCH (22:09)
[2018-01-15] MEDS: MOTRIN PO SCH ×2 (08:13→16:55)
--- NOTE | 2018-01-15 08:37 | Discharge Summary ---
Providers - Providers Date of Admission: 01/12/18 10:39 Date of discharge: 01/15/18 Attending physician: KENNETH LOPEZ 01/13/18 20:01 Consult to Cytopathology Technologist [CONS] Routine Reason For Exam: assistance with , SNS Primary care physician: KENNETH LOPEZ Hospitalization Reason for admission: induction for postdates Condition: Good Pertinent studies: post del H&H 9.8/28.0 Procedures: Hospital course: uncomplicated and course Disposition: DC- TO HOME OR SELFCARE - Discharge Diagnoses (1) (normal spontaneous vaginal delivery) Status: Acute Core Measure Documentation - Palliative Care Palliative Care/ Comfort Measures: Not Applicable - Core Measures Any of the following diagnoses?: none Exam - Constitutional Vitals: Temp Pulse Resp BP Pulse Ox 98.3 F 90 20 122/72 98 01/14/18 23:30 01/14/18 23:30 01/14/18 23:30 01/14/18 23:30 01/14/18 23:30 General appearance: Present: no acute distress, well-nourished - EENT Eyes: Present: PERRL ENT: hearing intact, clear oral mucosa - Neck Neck: Present: supple, normal ROM - Respiratory Respiratory effort: normal Respiratory: bilateral: CTA - Cardiovascular Heart Sounds: Present: S1 & S2. Absent: rub, click - Extremities Extremities: pulses symmetrical, No edema Peripheral Pulses: within normal limits - Abdominal General gastrointestinal: Present: soft, non-tender, non-distended, normal bowel sounds Female genitourinary: Present: normal - Integumentary Integumentary: Present: clear, warm, dry - Musculoskeletal Musculoskeletal: gait normal, strength equal bilaterally - Psychiatric Psychiatric: appropriate mood/affect, intact judgment & insight - Neurologic Neurologic: CNII-XII intact, moves all extremities - Additional findings Additional findings: Lochia scant, fundus firm, pumping breast milk for in NICU. perineum lac healing well. Plan Activity: no restrictions Diet: regular Follow up with: KENNETH LOPEZ MD [Primary Care Provider] - 7 Days (Congratulations! Please call [phone] to schedule your son's circumcision in 1 week (or after you know he will be discharged from NICU) and your visit in 4 weeks. Bring EMLA cream to your son's visit and await further instructions. Call for any questions or concerns.) Prescriptions: Ibuprofen [Motrin 800 MG tab] 800 mg PO Q8HR PRN #30 tablet PRN Reason: Pain Lidocain2.5%/Prilocai2.5% [Emla] 5 gm TP ONCE PRN #1 tube PRN Reason: Pain
[2018-01-15] MEDS: COLACE PO SCH (10:16)
[2018-01-15] MEDS: FEOSOL PO SCH (10:16)
[2018-01-15 17:10] VITALS: BP 118/80
== END 2018-01-15 16:50 | disposition home or self-care (01) | DRG 775 ==
LOC: LD 10:39 → OB 01-13 19:00
PROVIDERS: ADMIT Obstetrics & Gynecology; ATTEND Obstetrics & Gynecology
PROC: 10H07YZ Insertion of Other Device into Products of Conception, Via Natural or Artificial Opening (ICD-10-PCS; 2018-01-12)
PROC: 3E0P7VZ Introduction of Hormone into Female Reproductive, Via Natural or Artificial Opening (ICD-10-PCS; 2018-01-12)
PROC: 10E0XZZ Delivery of Products of Conception, External Approach (ICD-10-PCS; principal; 2018-01-13)
PROC: 0KQM0ZZ Repair Perineum Muscle, Open Approach (ICD-10-PCS; 2018-01-13)
PROC: 0UQMXZZ Repair Vulva, External Approach (ICD-10-PCS; 2018-01-13)
PROC: 3E0R3BZ Introduction of Anesthetic Agent into Spinal Canal, Percutaneous Approach (ICD-10-PCS; 2018-01-13)
PROC: 00HU33Z Insertion of Infusion Device into Spinal Canal, Percutaneous Approach (ICD-10-PCS; 2018-01-13)
PROC: 3E0234Z Introduction of Serum, Toxoid and Vaccine into Muscle, Percutaneous Approach (ICD-10-PCS; 2018-01-14)
DX: O99.824 Streptococcus B carrier state complicating childbirth (principal); O77.0 Labor and delivery complicated by meconium in amniotic fluid; O76 Abnormality in fetal heart rate and rhythm complicating labor and delivery; Z3A.41 41 weeks gestation of pregnancy; Z37.0 Single live birth; Z80.59 Family history of malignant neoplasm of other urinary tract organ; Z80.3 Family history of malignant neoplasm of breast; Z82.49 Family history of ischemic heart disease and other diseases of the circulatory system; O70.1 Second degree perineal laceration during delivery; Z23 Encounter for immunization
CPT/HCPCS: 36415; 59200; 82565; 83615; 84450; 84460; 84550; 85014; 85018; 85027; 86592; 86850; 86900; 86901; 88307; 90686; 99211; G0463; J0290; J2405; J2590; J3010; J7120